=== PATIENT | male | born 1990 | race Caucasian/White ===

== ENCOUNTER 2019-03-03 11:45 | Emergency (ER) | payer OTHER ==
[2019-03-03 12:18] LABS: BILIRUBIN,URINE NEGATIVE (NEGATIVE); GLUCOSE, URINE (UA) NEGATIVE (NEGATIVE); KETONES,URINE (UA) NEGATIVE (NEGATIVE); LEUKOCYTE ESTERASE, URINE NEGATIVE (NEGATIVE); NITRITE,URINE NEGATIVE (NEGATIVE); OCCULT BLOOD,URINE NEGATIVE (NEGATIVE); PROTEIN,URINE NEGATIVE (NEGATIVE); UROBILINOGEN,URINE 0.2 (NORMAL) E.U./dL (NORMAL)
[2019-03-03 12:18] LABS: BASOPHILS # (AUTO) 0.1 10^3/uL (0.0-0.1); EOSINOPHILS # (AUTO) 0.2 10^3/uL (0.0-0.7); EOSINOPHILS % (AUTO) 3.3 %; LYMPHOCYTES # (AUTO) 1.2 10^3/uL (1.5-3.5); LYMPHOCYTES % (AUTO) 18.7 %; MEAN CORPUSCULAR HEMOGLOBIN 31.8 pg (27.0-31.0); MEAN CORPUSCULAR HGB CONC 35.1 g/dL (32.0-36.0); MEAN CORPUSCULAR VOLUME 90.7 fL (80.0-94.0); MEAN PLATELET VOLUME 9.3 fL (7.4-11.4); MONOCYTES # (AUTO) 0.8 10^3/uL (0.0-1.0); MONOCYTES % (AUTO) 12.9 %; NEUTROPHILS % (AUTO) 63.8 %; PLT - PLATELET COUNT 297 10^3/uL (130-450); RED BLOOD COUNT 5.35 10^6/uL (4.70-6.10); RED CELL DISTRIBUTION WIDTH 11.5 % (12.0-15.0); WHITE BLOOD COUNT 6.3 x10^3/uL (4.8-10.8)
[2019-03-03 12:22] LABS: CLARITY,URINE CLEAR (CLEAR)
[2019-03-03 12:25] LABS: ALBUMIN 5.2 g/dL (3.2-5.5); ALBUMIN/GLOBULIN RATIO 1.4 (1.0-2.2); TOTAL PROTEIN 8.8 g/dL (6.7-8.2)
--- NOTE | 2019-03-03 14:14 | ED Physician Documentation ---
History of Present Illness - Stated complaint Stated Complaint: MALE - Chief complaint Chief Complaint: Abd Pain - History obtained from History obtained from: Patient - History of Present Illness Timing: How many days ago (several days) Pain level max: 7 Pain level now: 5 - Additonal information Additional information: 29-year-old male presents to the emergency department with left flank pain. Ongoing for the past few days. Had right-sided flank pain last week that resolved. No fevers. No vomiting. Nothing has made it better or worse. Does not seem to change with movement. No lifting. No trauma. No hematuria. No dysuria. Review of Systems Constitutional: denies: Fever, Chills Throat: denies: Sore throat Cardiac: denies: Chest pain / pressure, Palpitations Respiratory: denies: Cough GI: denies: Vomiting Skin: denies: Rash Musculoskeletal: denies: Neck pain, Back pain Neurologic: denies: Headache PD PAST MEDICAL HISTORY - Past Medical History Past Medical History: No - Past Surgical History Past Surgical History: No - Present Medications Home Medications: Ambulatory Orders Medication Instructions Recorded Confirmed Meloxicam [Mobic] 15 mg PO DAILY PRN #20 tablet 03/03/19 - Allergies Allergies/Adverse Reactions: Allergies Allergy/AdvReac Type Severity Reaction Status Date / Time No Known Drug Allergies Allergy Verified 03/03/19 11:50 - Living Situation Living Situation: reports: With family Living Arrangement: reports: At home - Social History Does the pt have substance abuse?: No - Family History Family history: reports: Non contributory PD ED PE NORMAL - Vitals Vital signs reviewed: Yes - General General: Alert and oriented X 3, No acute distress - HEENT HEENT: Moist mucous membranes - Neck Neck: Supple, no meningeal sign - Cardiac Cardiac: RRR - Respiratory Respiratory: No respiratory distress, Clear bilaterally - Abdomen Abdomen: Soft, Non tender, Non distended - Back Back: No CVA TTP, No spinal TTP, Other (no muscle spasm) - Derm Derm: Warm and dry - Neuro Neuro: Alert and oriented X 3 Results - Vitals Vitals: Vital Signs - 24 hr 03/03/19 03/03/19 11:48 15:16 Temperature 36.4 C L 36.4 C L Heart Rate 111 H 82 Respiratory 19 12 Rate Blood Pressure 142/108 H 125/91 H O2 Saturation 95 99 Oxygen O2 Source Room air - Labs Labs: Laboratory Tests 03/03/19 03/03/19 03/03/19 12:05 12:05 12:10 WBC 6.3 RBC 5.35 Hgb 17.0 Hct 48.5 MCV 90.7 MCH 31.8 H MCHC 35.1 RDW 11.5 L Plt Count 297 MPV 9.3 Neut # (Auto) 4.0 Lymph # (Auto) 1.2 L Dickenson # (Auto) 0.8 Eos # (Auto) 0.2 Baso # (Auto) 0.1 Absolute Nucleated RBC 0.00 Nucleated RBC % 0.0 Sodium 135 Potassium 3.8 Chloride 97 L Carbon Dioxide 25 Anion Gap 13.0 BUN 9 Creatinine 1.0 Estimated GFR (MDRD) 89 Glucose 119 H Calcium 10.0 Total Bilirubin 1.0 AST 76 H ALT 135 H Alkaline Phosphatase 70 Total Protein 8.8 H Albumin 5.2 Globulin 3.6 Albumin/Globulin Ratio 1.4 Lipase 35 Urine Color YELLOW Urine Clarity CLEAR Urine pH 7.0 Ur Specific Sylvester <=1.005 Urine Protein NEGATIVE Urine Glucose (UA) NEGATIVE Urine Ketones NEGATIVE Urine Occult Blood NEGATIVE Urine Nitrite NEGATIVE Urine Bilirubin NEGATIVE Urine Urobilinogen 0.2 (NORMAL) Ur Leukocyte Esterase NEGATIVE Ur Microscopic Review NOT INDICATED Urine Culture Comments NOT INDICATED - Rads (name of study) ct abd/pelvis Radiology: Prelim report reviewed, EMP read contemporaneously, See rad report (No urinary tract stones or obstruction. Normal appendix in the right lower quadrant.) PD MEDICAL DECISION MAKING - ED course Complexity details: reviewed results, re-evaluated patient, considered differential, d/w patient ED course: 29-year-old male with left flank pain of unclear etiology. No acute findings on laboratory testing or CT scan. Will trial on meloxicam and see how he progresses. No evidence of epidural abscess. Cauda equina. Patient counseled regarding signs and symptoms for which I believe and urgent re-evaluation would be necessary. Patient with good understanding of and agreement to plan and is comfortable going home at this time This document was made in part using voice recognition software. While efforts are made to proofread this document, sound alike and grammatical errors may occur. No testicular symptoms Departure - Departure Disposition: 01 Home, Self Care Clinical Impression: Left flank pain Condition: Good Instructions: ED Abdominal Pain Unkn Cause Follow-Up: your,doctor within 1 week [Other] Prescriptions: Meloxicam [Mobic] 15 mg PO DAILY PRN #20 tablet PRN Reason: pain Comments: The cause of your symptoms is unclear today. Follow-up with your doctor for further care. Your laboratory testing and CT scan did not show any acute abnormalities. Return if you worsen Discharge Date/Time: 03/03/19 15:18
--- NOTE | 2019-03-03 14:56 | CT Report ---
Reason: L flank pain Procedure Date: 03/03/2019 Accession Number: [id number] / [id number] Procedure: CT - Abdomen/Pelvis WO CPT Code: FULL RESULT: EXAM: CT ABDOMEN AND PELVIS (CT KUB) EXAM DATE: 03/03/2019 02:27 PM. CLINICAL HISTORY: L flank pain. COMPARISONS: None. TECHNIQUE: Routine axial helical CT imaging was performed through the abdomen and pelvis without IV contrast. Reconstructions: Coronal and sagittal. In accordance with CT protocol optimization, one or more of the following dose reduction techniques were utilized for this exam: automated exposure control, adjustment of mA and/or KV based on patient size, or use of iterative reconstructive technique. FINDINGS: Lung Bases: Unremarkable. Right Kidney/Ureter: No stones, hydronephrosis, or hydroureter. No perinephric fat stranding. Left Kidney/Ureter: No stones, hydronephrosis, or hydroureter. No perinephric fat stranding. Other Solid Organs: Noncontrast images of the solid organs are grossly unremarkable. Gallbladder/Bile Ducts: Unremarkable. Peritoneal Cavity: No free fluid, free air or darlene adenopathy. Bowel is grossly unremarkable. Normal appendix seen in right lower quadrant. Pelvic Organs: No bladder stones or wall thickening. Noncontrast images of the visualized pelvic organs are unremarkable. Vasculature: Unremarkable. Other: None. IMPRESSION: No urinary tract stones or obstruction. Normal appendix in right lower quadrant. [facility]
[2019-03-03 15:17] VITALS: BP 125/91
== END 2019-03-03 15:18 | disposition home or self-care (01) ==
LOC: ED 11:45
DX: R10.9 Unspecified abdominal pain (principal)
CPT/HCPCS: 36415; 74176; 80053; 81001; 81003; 83690; 85025; 87086; 99283; 99284